=== PATIENT | female | born 1955 | race Caucasian/White ===

== ENCOUNTER 2019-10-24 11:42 | Inpatient (IN) | payer BC ==
[~2019-10-24] VITALS: Ht 165.1 cm; Wt 189.0 kg
[2019-10-24] MEDS ORDERED: SODIUM CHLORIDE FLUSH 10ML SYR IVF ONE (13:30)
[2019-10-24 13:55] LABS: BASOPHILS # (AUTO) 0.05 x10^3/uL (0-0.1); BASOPHILS % (AUTO) 1 % (0-1); EOSINOPHILS # (AUTO) 0.16 x10^3/uL (0-0.4); EOSINOPHILS % (AUTO) 2 % (1-7); LYMPHOCYTES # (AUTO) 0.82 x10^3/uL (1-3.4); LYMPHOCYTES % (AUTO) 12 % (22-44); MD NO; MEAN CORPUSCULAR HGB CONC 31.5 g/dL (32.4-35.8); MEAN CORPUSCULAR VOLUME 88.9 fL (80-100); MEAN PLATELET VOLUME 11.5 fL (7.4-10.4); MONOCYTES # (AUTO) 0.64 x10^3/uL (0.2-0.8); MONOCYTES % (AUTO) 9 % (2-9); NEUTROPHILS # (AUTO) 5.14 x10^3/uL (1.8-6.8); NEUTROPHILS % (AUTO) 76 % (42-75); PLATELET COUNT 182 x10^3/uL (130-400); RED BLOOD COUNT 4.18 x10^6/uL (3.82-5.3); RED CELL DISTRIBUTION WIDTH 16.3 % (9.6-15.2)
[2019-10-24 14:06] LABS: ALANINE AMINOTRANSFERASE 19 U/L (12-78); ALBUMIN 3.5 g/dL (3.4-5.0); ANION GAP 5 mmol/L (5-15); CALCIUM 8.6 mg/dL (8.5-10.1); CHLORIDE 113 mmol/L (98-107); CREATININE 0.94 mg/dL (0.55-1.02)
[2019-10-24 14:10] LABS: ALKALINE PHOSPHATASE 73 U/L (45-117); BILIRUBIN,TOTAL 0.3 mg/dL (0.2-1.0); TOTAL PROTEIN 7.2 g/dL (6.4-8.2); TROPONIN I 0.036 ng/mL (0.000-0.045)
[2019-10-24] MEDS ORDERED: CEFTRIAXONE PMX 1GM/50ML 50 ML ONE (14:18)
--- NOTE | 2019-10-24 14:29 | NUR ---
IV ESTABLISHED AND PT MEDICATED PER MD CARLENE AT BEDSIDE TO UPDATE PT ON POC. PT TO BE ADMITTED
[2019-10-24] MEDS ORDERED: CEFTRIAXONE PMX 1GM/50ML 50 ML IVPB ONE (14:30)
[2019-10-24] MEDS ORDERED: AZITHROMYCIN 500 MG in SODIUM CHLORIDE 0.9% 250 ML IVPB ONE (14:30)
[2019-10-24] MEDS ORDERED: SODIUM CHLORIDE FLUSH 10ML SYR IVF PRN (15:00)
--- NOTE | 2019-10-24 15:24 | NUR ---
REPORT TO ROMAN CUELLO
[2019-10-24 16:38] VITALS: BP 142/60
[2019-10-24] MEDS ORDERED: ONDANSETRON 2MG/ML, 2ML IVPush PRN (17:00)
[2019-10-24] MEDS: ENOXAPARIN 40 MG/0.4 ML SQ SCH (17:59)
[2019-10-24] MEDS: CEFTRIAXONE PMX 2GM/50ML 50 ML IV SCH (18:00)
[2019-10-24] MEDS ORDERED: LISI40TA PO (18:15)
[2019-10-24 18:32] LABS: TROPONIN I 0.043 ng/mL (0.000-0.045)
[2019-10-24] MEDS: DOXYCYCLINE 100 MG in DEXTROSE 5% 250 ML IV SCH (20:24)
[2019-10-24 20:32] VITALS: BP 123/86
[2019-10-24] MEDS ORDERED: OMNIPAQUE 350 MG/ML, 75ML BOTTLE ONE (23:41)
[2019-10-25] LABS: TROPONIN I 0.043 ng/mL (0.000-0.045)
[2019-10-25 02:27] VITALS: BP 125/55
[2019-10-25 08:18] VITALS: BP 136/58
[2019-10-25] MEDS: DOXYCYCLINE 100 MG in DEXTROSE 5% 250 ML IV SCH ×2 (10:03→21:51)
[2019-10-25 14:31] VITALS: BP 105/66
[2019-10-25] MEDS: ENOXAPARIN 40 MG/0.4 ML SQ SCH (17:48)
[2019-10-25] MEDS: CEFTRIAXONE PMX 2GM/50ML 50 ML IV SCH (17:48)
[2019-10-25] MEDS: IBUPROFEN 600 MG TABLET PO PRN ×2 (18:46→22:02)
[2019-10-25 20:06] VITALS: BP 137/101
[2019-10-26 03:01] VITALS: BP 145/70
[2019-10-26 06:58] LABS: BASOPHILS # (AUTO) 0.04 x10^3/uL (0-0.1); BASOPHILS % (AUTO) 1 % (0-1); EOSINOPHILS # (AUTO) 0.18 x10^3/uL (0-0.4); EOSINOPHILS % (AUTO) 4 % (1-7); LYMPHOCYTES # (AUTO) 0.85 x10^3/uL (1-3.4); LYMPHOCYTES % (AUTO) 20 % (22-44); MD NO; MEAN CORPUSCULAR HEMOGLOBIN 27.8 pg (27.0-34.8); MEAN CORPUSCULAR VOLUME 89.7 fL (80-100); MEAN PLATELET VOLUME 11.5 fL (7.4-10.4); MONOCYTES # (AUTO) 0.62 x10^3/uL (0.2-0.8); MONOCYTES % (AUTO) 14 % (2-9); NEUTROPHILS # (AUTO) 2.64 x10^3/uL (1.8-6.8); NEUTROPHILS % (AUTO) 61 % (42-75); PLATELET COUNT 170 x10^3/uL (130-400); RED BLOOD COUNT 3.93 x10^6/uL (3.82-5.3); RED CELL DISTRIBUTION WIDTH 16.6 % (9.6-15.2)
[2019-10-26 07:07] LABS: ANION GAP 5 mmol/L (5-15); CALCIUM 8.8 mg/dL (8.5-10.1); CHLORIDE 110 mmol/L (98-107); CREATININE 0.64 mg/dL (0.55-1.02)
[2019-10-26 08:29] VITALS: BP 152/68
[2019-10-26] MEDS: DOXYCYCLINE 100 MG in DEXTROSE 5% 250 ML IV SCH ×2 (11:01→22:00)
[2019-10-26] MEDS: IBUPROFEN 600 MG TABLET PO PRN ×2 (11:01→22:48)
[2019-10-26 13:48] VITALS: BP 105/44
[2019-10-26] MEDS: ENOXAPARIN 40 MG/0.4 ML SQ SCH (17:53)
[2019-10-26] MEDS: CEFTRIAXONE PMX 2GM/50ML 50 ML IV SCH (17:53)
[2019-10-26] MEDS: LACTOBACILLUS CHEW TABLET PO SCH (17:53)
[2019-10-26] MEDS: CYANOCOBALAMIN 1,000 MCG TABLET PO SCH (17:53)
[2019-10-26 20:00] VITALS: BP 135/60
[2019-10-26 21:16] VITALS: BP 135/60
[2019-10-27 01:20] VITALS: BP 132/79
[2019-10-27 07:01] LABS: BASOPHILS # (AUTO) 0.03 x10^3/uL (0-0.1); BASOPHILS % (AUTO) 1 % (0-1); EOSINOPHILS # (AUTO) 0.14 x10^3/uL (0-0.4); EOSINOPHILS % (AUTO) 3 % (1-7); LYMPHOCYTES # (AUTO) 0.76 x10^3/uL (1-3.4); LYMPHOCYTES % (AUTO) 17 % (22-44); MD NO; MEAN CORPUSCULAR HEMOGLOBIN 28.1 pg (27.0-34.8); MEAN CORPUSCULAR VOLUME 90.7 fL (80-100); MEAN PLATELET VOLUME 11.1 fL (7.4-10.4); MONOCYTES # (AUTO) 0.57 x10^3/uL (0.2-0.8); MONOCYTES % (AUTO) 13 % (2-9); NEUTROPHILS # (AUTO) 2.94 x10^3/uL (1.8-6.8); NEUTROPHILS % (AUTO) 66 % (42-75); PLATELET COUNT 164 x10^3/uL (130-400); RED BLOOD COUNT 3.98 x10^6/uL (3.82-5.3); RED CELL DISTRIBUTION WIDTH 16.5 % (9.6-15.2)
[2019-10-27 07:10] LABS: CHLORIDE 109 mmol/L (98-107)
[2019-10-27 07:16] LABS: ANION GAP 5 mmol/L (5-15); CALCIUM 8.5 mg/dL (8.5-10.1); CREATININE 0.51 mg/dL (0.55-1.02)
[2019-10-27 08:06] VITALS: BP 131/73
[2019-10-27] MEDS ORDERED: REGADENOSON 0.4 MG/5 ML SYRINGE ONE (08:06)
[2019-10-27] MEDS: CYANOCOBALAMIN 1,000 MCG TABLET PO SCH (08:38)
[2019-10-27] MEDS: LACTOBACILLUS CHEW TABLET PO SCH (08:38)
[2019-10-27 13:17] VITALS: BP 143/72
[2019-10-27] MEDS: DOXYCYCLINE 100 MG in DEXTROSE 5% 250 ML IV SCH (16:12)
[2019-10-27] MEDS: CEFTRIAXONE PMX 2GM/50ML 50 ML IV SCH (17:44)
[2019-10-27] MEDS: ENOXAPARIN 40 MG/0.4 ML SQ SCH (17:45)
[2019-10-27 20:34] VITALS: BP 143/74
[2019-10-27] MEDS: IBUPROFEN 600 MG TABLET PO PRN (21:49)
[2019-10-28 01:26] VITALS: BP 122/65
[2019-10-28] MEDS: DOXYCYCLINE 100 MG in DEXTROSE 5% 250 ML IV SCH ×2 (04:00→16:33)
[2019-10-28 07:17] VITALS: BP 130/72
[2019-10-28 07:39] LABS: BASOPHILS # (AUTO) 0.03 x10^3/uL (0-0.1); BASOPHILS % (AUTO) 1 % (0-1); EOSINOPHILS # (AUTO) 0.17 x10^3/uL (0-0.4); EOSINOPHILS % (AUTO) 4 % (1-7); LYMPHOCYTES # (AUTO) 0.55 x10^3/uL (1-3.4); LYMPHOCYTES % (AUTO) 14 % (22-44); MD NO; MEAN CORPUSCULAR HEMOGLOBIN 28.1 pg (27.0-34.8); MEAN CORPUSCULAR HGB CONC 31.1 g/dL (32.4-35.8); MEAN CORPUSCULAR VOLUME 90.2 fL (80-100); MEAN PLATELET VOLUME 10.4 fL (7.4-10.4); MONOCYTES # (AUTO) 0.48 x10^3/uL (0.2-0.8); MONOCYTES % (AUTO) 12 % (2-9); NEUTROPHILS # (AUTO) 2.69 x10^3/uL (1.8-6.8); NEUTROPHILS % (AUTO) 69 % (42-75); PLATELET COUNT 155 x10^3/uL (130-400); RED BLOOD COUNT 3.92 x10^6/uL (3.82-5.3); RED CELL DISTRIBUTION WIDTH 16.3 % (9.6-15.2)
[2019-10-28 07:44] LABS: CALCIUM 8.5 mg/dL (8.5-10.1); CREATININE 0.48 mg/dL (0.55-1.02)
[2019-10-28 07:57] LABS: ANION GAP 3 mmol/L (5-15); CHLORIDE 106 mmol/L (98-107)
[2019-10-28] MEDS: LACTOBACILLUS CHEW TABLET PO SCH (09:28)
[2019-10-28] MEDS: CYANOCOBALAMIN 1,000 MCG TABLET PO SCH (09:28)
[2019-10-28 12:33] VITALS: BP 131/77
[2019-10-28] MEDS: ENOXAPARIN 40 MG/0.4 ML SQ SCH (17:43)
[2019-10-28] MEDS: CEFTRIAXONE PMX 2GM/50ML 50 ML IV SCH (18:00)
[2019-10-28 20:49] VITALS: BP 138/77
[2019-10-28] MEDS: IBUPROFEN 600 MG TABLET PO PRN (23:26)
[2019-10-29 02:35] VITALS: BP 120/72
[2019-10-29] MEDS: DOXYCYCLINE 100 MG in DEXTROSE 5% 250 ML IV SCH ×2 (04:20→18:11)
[2019-10-29 05:10] LABS: ANION GAP 4 mmol/L (5-15); CALCIUM 8.4 mg/dL (8.5-10.1); CHLORIDE 107 mmol/L (98-107); CREATININE 0.46 mg/dL (0.55-1.02)
[2019-10-29 05:12] LABS: BASOPHILS # (AUTO) 0.02 x10^3/uL (0-0.1); BASOPHILS % (AUTO) 0 % (0-1); EOSINOPHILS # (AUTO) 0.21 x10^3/uL (0-0.4); EOSINOPHILS % (AUTO) 5 % (1-7); LYMPHOCYTES # (AUTO) 0.66 x10^3/uL (1-3.4); LYMPHOCYTES % (AUTO) 16 % (22-44); MD NO; MEAN CORPUSCULAR HGB CONC 31.4 g/dL (32.4-35.8); MEAN CORPUSCULAR VOLUME 89.1 fL (80-100); MONOCYTES # (AUTO) 0.47 x10^3/uL (0.2-0.8); MONOCYTES % (AUTO) 12 % (2-9); NEUTROPHILS # (AUTO) 2.67 x10^3/uL (1.8-6.8); NEUTROPHILS % (AUTO) 66 % (42-75); PLATELET COUNT 148 x10^3/uL (130-400); RED BLOOD COUNT 3.79 x10^6/uL (3.82-5.3); RED CELL DISTRIBUTION WIDTH 15.8 % (9.6-15.2)
[2019-10-29 07:06] VITALS: BP 137/76
[2019-10-29] MEDS: CYANOCOBALAMIN 1,000 MCG TABLET PO SCH (08:03)
[2019-10-29] MEDS: LACTOBACILLUS CHEW TABLET PO SCH (08:03)
[2019-10-29 13:00] VITALS: BP 144/74
[2019-10-29] MEDS: IBUPROFEN 600 MG TABLET PO PRN (15:13)
[2019-10-29] MEDS: CEFTRIAXONE PMX 2GM/50ML 50 ML IV SCH (17:32)
[2019-10-29] MEDS: ENOXAPARIN 40 MG/0.4 ML SQ SCH (18:11)
[2019-10-29 20:00] VITALS: BP 139/71
[2019-10-30 02:47] VITALS: BP 130/74
[2019-10-30] MEDS: DOXYCYCLINE 100 MG in DEXTROSE 5% 250 ML IV SCH (04:15)
[2019-10-30] MEDS: IBUPROFEN 600 MG TABLET PO PRN ×2 (06:00→18:32)
[2019-10-30 06:15] LABS: BASOPHILS # (AUTO) 0.02 x10^3/uL (0-0.1); BASOPHILS % (AUTO) 1 % (0-1); EOSINOPHILS % (AUTO) 5 % (1-7); LYMPHOCYTES # (AUTO) 0.64 x10^3/uL (1-3.4); LYMPHOCYTES % (AUTO) 15 % (22-44); MD NO; MEAN CORPUSCULAR HEMOGLOBIN 28.1 pg (27.0-34.8); MEAN CORPUSCULAR HGB CONC 31.5 g/dL (32.4-35.8); MEAN CORPUSCULAR VOLUME 89.3 fL (80-100); MONOCYTES # (AUTO) 0.47 x10^3/uL (0.2-0.8); MONOCYTES % (AUTO) 11 % (2-9); NEUTROPHILS # (AUTO) 2.88 x10^3/uL (1.8-6.8); NEUTROPHILS % (AUTO) 68 % (42-75); PLATELET COUNT 130 x10^3/uL (130-400); RED BLOOD COUNT 3.87 x10^6/uL (3.82-5.3); RED CELL DISTRIBUTION WIDTH 15.4 % (9.6-15.2)
[2019-10-30 06:25] LABS: ANION GAP 1 mmol/L (5-15); CALCIUM 8.5 mg/dL (8.5-10.1); CHLORIDE 105 mmol/L (98-107); CREATININE 0.41 mg/dL (0.55-1.02)
[2019-10-30 06:45] VITALS: BP 119/67
[2019-10-30] MEDS: CYANOCOBALAMIN 1,000 MCG TABLET PO SCH (08:46)
[2019-10-30] MEDS: LACTOBACILLUS CHEW TABLET PO SCH (08:46)
[2019-10-30 12:09] VITALS: BP 127/67
[2019-10-30] MEDS ORDERED: ATOR20TA37 PO (13:16)
[2019-10-30] MEDS ORDERED: ASPI81TA45 PO (13:16)
[2019-10-30] MEDS ORDERED: LISI40TA PO (13:16)
[2019-10-30] MEDS ORDERED: CYAN-27 PO (13:16)
[2019-10-30] MEDS ORDERED: ENOX40SY4 SQ (13:16)
[2019-10-30] MEDS: ENOXAPARIN 40 MG/0.4 ML SQ SCH (16:31)
[2019-10-30] MEDS: CEFTRIAXONE PMX 2GM/50ML 50 ML IV SCH (16:31)
[2019-10-30] MEDS: DOXYCYCLINE 100MG CAP PO SCH (20:47)
[2019-10-30 21:02] VITALS: BP 118/70
[2019-10-31 03:02] VITALS: BP 124/72
[2019-10-31] MEDS: IBUPROFEN 600 MG TABLET PO PRN ×2 (06:00→18:36)
[2019-10-31 06:56] VITALS: BP 118/58
[2019-10-31] MEDS: DOXYCYCLINE 100MG CAP PO SCH ×2 (08:36→20:55)
[2019-10-31] MEDS: LACTOBACILLUS CHEW TABLET PO SCH (08:36)
[2019-10-31] MEDS: CYANOCOBALAMIN 1,000 MCG TABLET PO SCH (08:37)
[2019-10-31 14:26] VITALS: BP 119/72
[2019-10-31] MEDS: ENOXAPARIN 40 MG/0.4 ML SQ SCH (18:36)
[2019-10-31 18:43] LABS: MICROSCOPIC AUTO
[2019-10-31 20:32] VITALS: BP 118/61
[2019-11-01 01:07] VITALS: BP 114/68
[2019-11-01 04:00] LABS: ANION GAP 5 mmol/L (5-15); CALCIUM 8.8 mg/dL (8.5-10.1); CHLORIDE 104 mmol/L (98-107); CREATININE 0.41 mg/dL (0.55-1.02)
[2019-11-01 04:33] LABS: BASOPHILS # (AUTO) 0.03 x10^3/uL (0-0.1); BASOPHILS % (AUTO) 1 % (0-1); EOSINOPHILS # (AUTO) 0.21 x10^3/uL (0-0.4); EOSINOPHILS % (AUTO) 5 % (1-7); LYMPHOCYTES # (AUTO) 0.67 x10^3/uL (1-3.4); LYMPHOCYTES % (AUTO) 15 % (22-44); MD NO; MEAN CORPUSCULAR HGB CONC 31.4 g/dL (32.4-35.8); MEAN CORPUSCULAR VOLUME 89.2 fL (80-100); MEAN PLATELET VOLUME 11.7 fL (7.4-10.4); MONOCYTES # (AUTO) 0.52 x10^3/uL (0.2-0.8); MONOCYTES % (AUTO) 11 % (2-9); NEUTROPHILS # (AUTO) 3.17 x10^3/uL (1.8-6.8); NEUTROPHILS % (AUTO) 69 % (42-75); PLATELET COUNT 122 x10^3/uL (130-400); RED BLOOD COUNT 3.85 x10^6/uL (3.82-5.3); RED CELL DISTRIBUTION WIDTH 15.8 % (9.6-15.2)
[2019-11-01 07:15] VITALS: BP 133/74
[2019-11-01] MEDS: IBUPROFEN 600 MG TABLET PO PRN ×2 (08:34→17:50)
[2019-11-01] MEDS: LACTOBACILLUS CHEW TABLET PO SCH (08:34)
[2019-11-01] MEDS: CYANOCOBALAMIN 1,000 MCG TABLET PO SCH (08:34)
[2019-11-01] MEDS: DOXYCYCLINE 100MG CAP PO SCH (08:34)
[2019-11-01] MEDS ORDERED: ENOXAPARIN 30 MG/0.3 ML SQ SCH (12:30)
[2019-11-01 12:36] VITALS: BP 130/71
[2019-11-01] MEDS ORDERED: LEVO750T26 PO (16:07)
== END 2019-11-01 18:08 | DRG 194 ==
LOC: ED 13:30 → EDIP 14:34 → 4NE 16:12 → 4EST 10-27 07:45
PROVIDERS: ADMIT Internal Medicine; ATTEND Family Medicine
PROC: 0T9B70Z Drainage of Bladder with Drainage Device, Via Natural or Artificial Opening (ICD-10-PCS; principal; 2019-10-31)
DX: J15.9 Unspecified bacterial pneumonia (principal); Z68.44 Body mass index [BMI] 60.0-69.9, adult; Z03.818 Encounter for observation for suspected exposure to other biological agents ruled out; I25.10 Atherosclerotic heart disease of native coronary artery without angina pectoris; E66.01 Morbid (severe) obesity due to excess calories; G47.33 Obstructive sleep apnea (adult) (pediatric); R79.89 Other specified abnormal findings of blood chemistry; R53.81 Other malaise; Z88.8 Allergy status to other drugs, medicaments and biological substances
CPT/HCPCS: 36415; 36600; 71045; 71275; 78452; 80048; 80053; 80069; 81001; 82803; 83605; 83735; 83880; 84145; 84484; 85025; 85379; 87040; 87077; 87086; 87186; 93005; 93017; 93308; 93321; 93325; G0378; J0456; J0696; J1650; J2785; J7060; Q9967; A9502; C9898; J7050; U0001-CS

== ENCOUNTER 2020-10-12 19:24 | Inpatient (IN) | payer BC ==
[~2020-10-12] VITALS: Ht 157.5 cm; Wt 205.7 kg
[~2020-10-12 19:24] MED LIST: ASPI81TA45 PO; ATOR20TA37 PO; CYAN-27 PO; ENOX40SY4 SQ; LEVO750T26 PO; LISI40TA9 PO
[2020-10-12] MEDS ORDERED: SODIUM CHLORIDE FLUSH 10ML SYR IVF ONE (20:00)
[2020-10-12 20:05] LABS: BASOPHILS % (AUTO) 1 % (0-1); EOSINOPHILS % (AUTO) 3 % (1-7); LYMPHOCYTES % (AUTO) 10 % (22-44); MEAN PLATELET VOLUME 10.7 fL (7.4-10.4); MONOCYTES % (AUTO) 12 % (2-9); NEUTROPHILS % (AUTO) 74 % (42-75); PLATELET COUNT 169 x10^3/uL (130-400); RED BLOOD COUNT 3.76 x10^6/uL (3.82-5.3); RED CELL DISTRIBUTION WIDTH 17.3 % (9.6-15.2)
[2020-10-12 20:07] LABS: MEAN CORPUSCULAR HGB CONC 29.7 g/dL (32.4-35.8)
[2020-10-12 20:10] LABS: MD NO
[2020-10-12 20:17] LABS: INTERNATIONAL NORMALIZED RATIO 1.08 (0.93-1.1); PROTHROMBIN TIME 11.5 Seconds (9.6-11.5)
[2020-10-12 20:18] LABS: ALANINE AMINOTRANSFERASE 9 U/L (12-78); ALBUMIN 2.7 g/dL (3.4-5.0); CALCIUM 8.5 mg/dL (8.5-10.1); CHLORIDE 97 mmol/L (98-107)
[2020-10-12 20:28] LABS: ALKALINE PHOSPHATASE 61 U/L (45-117); BILIRUBIN,TOTAL 0.2 mg/dL (0.2-1.0); FREE T4 (FREE THYROXINE) 0.85 ng/dL (0.76-1.46); TOTAL PROTEIN 6.1 g/dL (6.4-8.2); TROPONIN I 0.027 ng/mL (0.000-0.045)
[2020-10-12] MEDS ORDERED: APIXABAN 5 MG TABLET PO ONE (21:00)
[2020-10-12] MEDS ORDERED: FUROSEMIDE 20 MG/2 ML IV ONE (21:00)
[2020-10-12 21:01] LABS: ANION GAP < 0 mmol/L (5-15)
--- NOTE | 2020-10-12 21:02 | NUR ---
CO2 OF 48-ERP MADE AWARE. NO NEW ORDERS
[2020-10-12] MEDS ORDERED: METOPROLOL TARTRATE 25 MG TAB PO ONE (21:30)
[2020-10-12] MEDS ORDERED: APIXABAN 5 MG TABLET ONE (21:43)
[2020-10-12] MEDS ORDERED: FUROSEMIDE 20 MG/2 ML ONE (21:43)
[2020-10-12] MEDS ORDERED: METOPROLOL TARTRATE 25 MG TAB ONE (21:43)
[2020-10-12 22:56] VITALS: BP 130/77
[2020-10-12] MEDS ORDERED: LIDODERM 5% PATCH TD PRN (23:00)
[2020-10-12] MEDS ORDERED: MELATONIN 5 MG TABLET PO PRN (23:00)
[2020-10-12] MEDS ORDERED: DOCUSATE 100 MG CAPSULE PO PRN (23:00)
[2020-10-13 02:15] VITALS: BP 133/76
[2020-10-13 06:46] LABS: BASOPHILS % (AUTO) 0 % (0-1); EOSINOPHILS % (AUTO) 3 % (1-7); LYMPHOCYTES % (AUTO) 11 % (22-44); MEAN CORPUSCULAR HEMOGLOBIN 27.6 pg (27.0-34.8); MEAN CORPUSCULAR HGB CONC 30.5 g/dL (32.4-35.8); MEAN PLATELET VOLUME 10.8 fL (7.4-10.4); MONOCYTES % (AUTO) 13 % (2-9); NEUTROPHILS % (AUTO) 73 % (42-75); PLATELET COUNT 155 x10^3/uL (130-400); RED BLOOD COUNT 3.67 x10^6/uL (3.82-5.3); RED CELL DISTRIBUTION WIDTH 17.1 % (9.6-15.2)
[2020-10-13 06:51] LABS: MD NO
[2020-10-13 06:56] LABS: CALCIUM 8.6 mg/dL (8.5-10.1); CHLORIDE 95 mmol/L (98-107)
[2020-10-13 06:57] VITALS: BP 104/70
[2020-10-13 07:06] LABS: CREATININE 0.23 mg/dL (0.55-1.02)
[2020-10-13 07:10] LABS: ANION GAP < 1 mmol/L (5-15)
[2020-10-13] MEDS ORDERED: NYSTATIN TOPICAL POWDER 15GM TP SCH (09:00)
[2020-10-13] MEDS: FUROSEMIDE 20 MG/2 ML IV SCH ×2 (09:53→16:06)
[2020-10-13] MEDS: APIXABAN 5 MG TABLET PO SCH ×2 (09:54→20:54)
[2020-10-13] MEDS: GABAPENTIN 300 MG CAPSULE PO SCH ×3 (09:54→20:54)
[2020-10-13] MEDS ORDERED: METOPROLOL TARTRATE 25 MG TAB ONE (11:50)
[2020-10-13] MEDS: METOPROLOL TARTRATE 25 MG TAB PO SCH (12:29)
[2020-10-13 13:32] VITALS: BP 125/74
[2020-10-13] MEDS: ACETAMINOPHEN 500 MG TABLET PO PRN ×2 (14:25→21:04)
[2020-10-13] MEDS: NYSTATIN TOPICAL POWDER 15GM TP SCH ×2 (14:42→21:00)
[2020-10-13 19:52] VITALS: BP 115/76
[2020-10-13] MEDS: ATORVASTATIN 20 MG TABLET PO SCH (20:55)
[2020-10-14 01:49] VITALS: BP 130/84
[2020-10-14] MEDS: ACETAMINOPHEN 500 MG TABLET PO PRN ×2 (04:37→20:52)
[2020-10-14 06:34] VITALS: BP 124/81
[2020-10-14 07:06] LABS: % IRON SATURATION 7 % (20-55); CALCIUM 8.6 mg/dL (8.5-10.1); CREATININE 0.27 mg/dL (0.55-1.02); IRON LEVEL 32 mcg/dL (50-170); TOTAL IRON BINDING CAPACITY 436 mcg/dL (250-450)
[2020-10-14 07:26] LABS: ANION GAP 4 mmol/L (5-15); CHLORIDE 94 mmol/L (98-107)
[2020-10-14] MEDS: FUROSEMIDE 20 MG/2 ML IV SCH ×2 (08:24→16:41)
[2020-10-14] MEDS: APIXABAN 5 MG TABLET PO SCH ×2 (08:25→20:52)
[2020-10-14] MEDS: LISINOPRIL 5 MG TABLET PO SCH (08:25)
[2020-10-14] MEDS: GABAPENTIN 300 MG CAPSULE PO SCH ×3 (08:25→20:52)
[2020-10-14] MEDS: METOPROLOL TARTRATE 25 MG TAB PO SCH (08:25)
[2020-10-14] MEDS: NYSTATIN TOPICAL POWDER 15GM TP SCH ×2 (09:36→21:15)
[2020-10-14] MEDS: IRON SUCROSE COMPLEX 100MG/5ML IV SCH (10:48)
[2020-10-14 12:24] VITALS: BP 100/62
[2020-10-14 19:11] VITALS: BP 115/62
[2020-10-14] MEDS: ATORVASTATIN 20 MG TABLET PO SCH (20:52)
[2020-10-15 01:11] VITALS: BP 98/59
[2020-10-15 07:49] VITALS: BP 103/70
[2020-10-15 08:08] LABS: CALCIUM 8.5 mg/dL (8.5-10.1); CHLORIDE 92 mmol/L (98-107)
[2020-10-15 08:09] LABS: CREATININE 0.99 mg/dL (0.55-1.02)
[2020-10-15] MEDS: ACETAMINOPHEN 500 MG TABLET PO SCH ×3 (08:10→23:40)
[2020-10-15] MEDS: METOPROLOL TARTRATE 25 MG TAB PO SCH (08:11)
[2020-10-15] MEDS: LISINOPRIL 5 MG TABLET PO SCH (08:12)
[2020-10-15] MEDS: APIXABAN 5 MG TABLET PO SCH ×2 (08:12→23:40)
[2020-10-15] MEDS: GABAPENTIN 300 MG CAPSULE PO SCH ×3 (08:12→23:40)
[2020-10-15] MEDS: IRON SUCROSE COMPLEX 100MG/5ML IV SCH (08:13)
[2020-10-15] MEDS: NYSTATIN TOPICAL POWDER 15GM TP SCH ×2 (08:13→23:41)
[2020-10-15] MEDS: FUROSEMIDE 20 MG/2 ML IV SCH (08:13)
[2020-10-15] MEDS: ALBUTEROL/IPRATROPIUM 2.5MG/0.5MG, 3 ML NPPB SCH ×3 (08:20→21:30)
[2020-10-15 09:02] LABS: ANION GAP < 1 mmol/L (5-15)
[2020-10-15 12:04] VITALS: BP 88/59
[2020-10-15 12:06] VITALS: BP 107/68
[2020-10-15] MEDS ORDERED: SODIUM CHLORIDE 0.9% 500 ML IV ONE (13:00)
[2020-10-15] MEDS ORDERED: SODIUM CHLORIDE 0.9% 500 ML IV SCH (13:00)
[2020-10-15 15:56] VITALS: BP 113/65
[2020-10-15] MEDS ORDERED: NOREPINEPHRINE 1 MG/ML, 4ML ONE (19:28)
[2020-10-15] MEDS ORDERED: NOREPINEPHRINE 32 MG in SODIUM CHLORIDE 0.9% 218 ML IV PRN (19:30)
[2020-10-15] MEDS ORDERED: NOREPINEPHRINE 8 MG in SODIUM CHLORIDE 0.9% 242 ML IV PRN (19:30)
[2020-10-15] MEDS ORDERED: LIDOCAINE-MPF 1%, 2ML ENDO PRN (20:00)
[2020-10-15] MEDS ORDERED: PHARMACY MAY ADJ FOR RENAL FX MC SCH (20:00)
[2020-10-15] MEDS ORDERED: LACTULOSE 20 GM/30 ML UDC NG PRN (20:00)
[2020-10-15] MEDS ORDERED: SENNA/DOCUSATE TABLET NG PRN (20:00)
[2020-10-15] MEDS ORDERED: SENNA 176 MG/5 ML ORAL SOL NG PRN (20:00)
[2020-10-15] MEDS ORDERED: BISACODYL 10 MG SUPP PR PRN (20:00)
[2020-10-15] MEDS ORDERED: ALBUTEROL/IPRATROPIUM 2.5MG/0.5MG, 3 ML ONE (20:51)
[2020-10-15] MEDS ORDERED: PROPOFOL 10 MG/ML, 20ML ONE (21:00)
[2020-10-15] MEDS ORDERED: ROCURONIUM 10MG/ML,5ML ONE (21:00)
[2020-10-15] MEDS ORDERED: PROPOFOL 10 MG/ML, 100ML IV ONE (21:00)
[2020-10-15] MEDS ORDERED: MIDAZOLAM 1 MG/ML, 5ML ONE (21:00)
[2020-10-15] MEDS ORDERED: LACTATED RINGERS 500 ML IVBOLUS ONE (21:30)
[2020-10-15] MEDS ORDERED: ALBUTEROL/IPRATROPIUM 2.5MG/0.5MG, 3 ML NPPB PRN (21:30)
[2020-10-15 21:42] LABS: BASOPHILS % (AUTO) 0 % (0-1); EOSINOPHILS % (AUTO) 1 % (1-7); LYMPHOCYTES % (AUTO) 4 % (22-44); MEAN CORPUSCULAR HEMOGLOBIN 27.2 pg (27.0-34.8); MEAN PLATELET VOLUME 11.3 fL (7.4-10.4); MONOCYTES % (AUTO) 11 % (2-9); NEUTROPHILS % (AUTO) 83 % (42-75); PLATELET COUNT 188 x10^3/uL (130-400); RED BLOOD COUNT 3.87 x10^6/uL (3.82-5.3); RED CELL DISTRIBUTION WIDTH 17.5 % (9.6-15.2)
[2020-10-15 21:51] LABS: INTERNATIONAL NORMALIZED RATIO 1.07 (0.93-1.1); PROTHROMBIN TIME 11.4 Seconds (9.6-11.5)
[2020-10-15 21:55] LABS: ALANINE AMINOTRANSFERASE 11 U/L (12-78); ANION GAP 2 mmol/L (5-15); CHLORIDE 94 mmol/L (98-107); CREATININE 1.12 mg/dL (0.55-1.02)
[2020-10-15 21:58] LABS: ALKALINE PHOSPHATASE 63 U/L (45-117); BILIRUBIN,TOTAL 0.5 mg/dL (0.2-1.0); TOTAL PROTEIN 6.3 g/dL (6.4-8.2)
[2020-10-15 22:02] LABS: MICROSCOPIC INDICATED
[2020-10-15 22:07] LABS: MEAN CORPUSCULAR HGB CONC 29.4 g/dL (32.4-35.8)
[2020-10-15 22:11] LABS: MD MORPH REVIEW ONLY
[2020-10-15 22:13] LABS: <PLATELET ESTIMATE> ADEQUATE; ANISOCYTOSIS 1+
[2020-10-15 22:14] LABS: POLYCHROMASIA 1+
[2020-10-15 22:17] LABS: LARGE PLATELETS 1+; STOMATOCYTES 1+
[2020-10-15] MEDS: ATORVASTATIN 20 MG TABLET PO SCH (23:40)
[2020-10-15] MEDS: FAMOTIDINE 20 MG/2 ML IV SCH (23:43)
[2020-10-16] MEDS: PROPOFOL 100 ML IV PRN ×10 (01:21→22:50)
[2020-10-16] MEDS: ALBUTEROL/IPRATROPIUM 2.5MG/0.5MG, 3 ML NPPB SCH ×6 (02:20→22:34)
[2020-10-16] MEDS: ACETAMINOPHEN 500 MG TABLET PO SCH ×4 (02:39→20:35)
[2020-10-16 05:47] LABS: BASOPHILS % (AUTO) 0 % (0-1); EOSINOPHILS % (AUTO) 2 % (1-7); LYMPHOCYTES % (AUTO) 7 % (22-44); MEAN PLATELET VOLUME 11.5 fL (7.4-10.4); MONOCYTES % (AUTO) 10 % (2-9); NEUTROPHILS % (AUTO) 82 % (42-75); PLATELET COUNT 152 x10^3/uL (130-400); RED BLOOD COUNT 3.61 x10^6/uL (3.82-5.3); RED CELL DISTRIBUTION WIDTH 17.1 % (9.6-15.2)
[2020-10-16 05:49] LABS: MD NO
[2020-10-16 05:52] LABS: ALBUMIN 2.5 g/dL (3.4-5.0); ANION GAP 2 mmol/L (5-15); CALCIUM 8.7 mg/dL (8.5-10.1); CHLORIDE 95 mmol/L (98-107)
[2020-10-16 05:58] LABS: CREATININE 0.71 mg/dL (0.55-1.02)
[2020-10-16 05:59] LABS: ALANINE AMINOTRANSFERASE 10 U/L (12-78); ALKALINE PHOSPHATASE 56 U/L (45-117); BILIRUBIN,TOTAL 0.5 mg/dL (0.2-1.0); TOTAL PROTEIN 5.4 g/dL (6.4-8.2)
[2020-10-16] MEDS: FAMOTIDINE 20 MG/2 ML IV SCH ×2 (07:46→20:35)
[2020-10-16] MEDS: METOPROLOL TARTRATE 25 MG TAB PO SCH (09:00)
[2020-10-16] MEDS: LISINOPRIL 5 MG TABLET PO SCH (09:00)
[2020-10-16] MEDS: APIXABAN 5 MG TABLET PO SCH ×2 (09:02→20:35)
[2020-10-16] MEDS: GABAPENTIN 300 MG CAPSULE PO SCH ×3 (09:02→20:35)
[2020-10-16] MEDS: IRON SUCROSE COMPLEX 100MG/5ML IV SCH (09:02)
[2020-10-16] MEDS ORDERED: FLUCONAZOLE 200 MG/100 ML 100 ML IV ONE (09:30)
[2020-10-16] MEDS: NYSTATIN OINT 15GM TP SCH ×2 (10:14→20:36)
[2020-10-16] MEDS: NYSTATIN TOPICAL POWDER 15GM TP SCH ×2 (10:14→20:36)
--- NOTE | 2020-10-16 14:02 | NUR ---
Tube Feed: Vital HP: goal: 55 on propofol, 65 ml/hr off propofol Addendum: 10/16/20 at [address] Amended: Links added.
[2020-10-16] MEDS: FENTANYL PF 100 MCG/2ML IVPush PRN ×2 (15:35→20:36)
[2020-10-16] MEDS ORDERED: AMIODARONE 150 MG in DEXTROSE 5% 100 ML IV ONE (17:00)
[2020-10-16] MEDS ORDERED: FILTER 0.22 MICRON FOR AMIODARONE IV PRN (17:00)
[2020-10-16] MEDS: AMIODARONE 450 MG in DEXTROSE 5% 241 ML IV PRN ×2 (17:07→21:19)
[2020-10-16] MEDS: PIPERACILLIN/TAZO 3.375 GM in DEXTROSE 5% 50 ML IV SCH ×2 (17:07→22:49)
[2020-10-16] MEDS: LINEZOLID PMX 600MG/300ML 300 ML IV SCH (17:54)
[2020-10-16] MEDS: ATORVASTATIN 20 MG TABLET PO SCH (20:35)
[2020-10-16] MEDS ORDERED: ALBUMIN HUMAN 25% 200 ML ONE (21:11)
[2020-10-16] MEDS ORDERED: MAGNESIUM SULFATE 1 GM in SODIUM CHLORIDE 0.9% 50 ML IV ONE (21:30)
[2020-10-16] MEDS ORDERED: ALBUMIN HUMAN 25% 100 ML IV ONE ×2 (21:30)
[2020-10-16] MEDS ORDERED: MAGNESIUM SULFATE/D5W 100 ML IV ONE (22:00)
[2020-10-17] MEDS: FENTANYL PF 100 MCG/2ML IVPush PRN ×5 (01:13→23:31)
[2020-10-17] MEDS: PROPOFOL 100 ML IV PRN ×9 (01:13→23:21)
[2020-10-17] MEDS: ALBUTEROL/IPRATROPIUM 2.5MG/0.5MG, 3 ML NPPB SCH ×5 (02:19→21:30)
[2020-10-17] MEDS: ACETAMINOPHEN 500 MG TABLET PO SCH ×4 (03:06→21:10)
[2020-10-17 04:05] LABS: BASOPHILS % (AUTO) 0 % (0-1); EOSINOPHILS % (AUTO) 2 % (1-7); LYMPHOCYTES % (AUTO) 7 % (22-44); MEAN CORPUSCULAR HEMOGLOBIN 27.4 pg (27.0-34.8); MEAN CORPUSCULAR HGB CONC 31.1 g/dL (32.4-35.8); MEAN PLATELET VOLUME 10.7 fL (7.4-10.4); MONOCYTES % (AUTO) 13 % (2-9); NEUTROPHILS % (AUTO) 78 % (42-75); PLATELET COUNT 167 x10^3/uL (130-400); RED BLOOD COUNT 3.56 x10^6/uL (3.82-5.3); RED CELL DISTRIBUTION WIDTH 17.2 % (9.6-15.2)
[2020-10-17 04:06] LABS: MD NO
[2020-10-17 04:15] LABS: ANION GAP 3 mmol/L (5-15); CALCIUM 8.8 mg/dL (8.5-10.1); CHLORIDE 95 mmol/L (98-107); CREATININE 0.53 mg/dL (0.55-1.02)
[2020-10-17] MEDS: PIPERACILLIN/TAZO 3.375 GM in DEXTROSE 5% 50 ML IV SCH ×3 (04:21→17:08)
[2020-10-17] MEDS: LINEZOLID PMX 600MG/300ML 300 ML IV SCH ×2 (05:44→17:08)
[2020-10-17] MEDS: KSCALE TO 4.5 IV SCH ×3 (07:00→19:00)
[2020-10-17] MEDS ORDERED: MAGNESIUM SULFATE PMX 2GM/50ML 50 ML IV ONE (07:00)
[2020-10-17] MEDS: FAMOTIDINE 20 MG/2 ML IV SCH ×2 (08:10→21:09)
[2020-10-17] MEDS: APIXABAN 5 MG TABLET PO SCH ×2 (08:10→21:10)
[2020-10-17] MEDS: GABAPENTIN 300 MG CAPSULE PO SCH ×3 (08:11→21:10)
[2020-10-17] MEDS: AMIODARONE 450 MG in DEXTROSE 5% 241 ML IV PRN (08:12)
[2020-10-17] MEDS: METOPROLOL TARTRATE 25 MG TAB PO SCH (09:00)
[2020-10-17] MEDS: LISINOPRIL 5 MG TABLET PO SCH (09:00)
[2020-10-17] MEDS: NYSTATIN OINT 15GM TP SCH ×2 (10:11→21:11)
[2020-10-17] MEDS: NYSTATIN TOPICAL POWDER 15GM TP SCH ×2 (10:11→21:11)
[2020-10-17] MEDS ORDERED: POTASSIUM CHLORIDE 30 MEQ in SODIUM CHLORIDE 0.9% 100 ML IV ONE ×2 (11:30→20:30)
[2020-10-17] MEDS: ATORVASTATIN 20 MG TABLET PO SCH (21:10)
[2020-10-18] MEDS: PIPERACILLIN/TAZO 3.375 GM in DEXTROSE 5% 50 ML IV SCH ×4 (00:28→15:37)
[2020-10-18] MEDS: AMIODARONE 450 MG in DEXTROSE 5% 241 ML IV PRN (00:30)
[2020-10-18] MEDS: KSCALE TO 4.5 IV SCH ×2 (01:00→07:00)
[2020-10-18] MEDS: PROPOFOL 100 ML IV PRN ×7 (01:26→21:18)
[2020-10-18] MEDS: ALBUTEROL/IPRATROPIUM 2.5MG/0.5MG, 3 ML NPPB SCH ×6 (01:30→21:30)
[2020-10-18] MEDS: FENTANYL PF 1,000 MCG in SODIUM CHLORIDE 0.9% 80 ML IV PRN ×2 (01:31→15:17)
[2020-10-18] MEDS ORDERED: POTASSIUM CHLORIDE 30 MEQ in SODIUM CHLORIDE 0.9% 100 ML IV ONE ×2 (02:30→08:00)
[2020-10-18] MEDS: ACETAMINOPHEN 500 MG TABLET PO SCH ×4 (03:12→21:07)
[2020-10-18 05:10] LABS: CALCIUM 8.5 mg/dL (8.5-10.1); CREATININE 0.41 mg/dL (0.55-1.02); TRIGLYCERIDES 100 mg/dL (50-200)
[2020-10-18 05:16] LABS: BASOPHILS % (AUTO) 1 % (0-1); EOSINOPHILS % (AUTO) 4 % (1-7); LYMPHOCYTES % (AUTO) 10 % (22-44); MEAN CORPUSCULAR HEMOGLOBIN 27.5 pg (27.0-34.8); MEAN CORPUSCULAR HGB CONC 31.1 g/dL (32.4-35.8); MEAN PLATELET VOLUME 11.2 fL (7.4-10.4); MONOCYTES % (AUTO) 13 % (2-9); NEUTROPHILS % (AUTO) 73 % (42-75); PLATELET COUNT 156 x10^3/uL (130-400); RED CELL DISTRIBUTION WIDTH 17.6 % (9.6-15.2)
[2020-10-18 05:18] LABS: ANION GAP 3 mmol/L (5-15); CHLORIDE 100 mmol/L (98-107)
[2020-10-18 05:19] LABS: MD NO
[2020-10-18] MEDS: LINEZOLID PMX 600MG/300ML 300 ML IV SCH ×2 (06:27→17:25)
[2020-10-18] MEDS: FAMOTIDINE 20 MG/2 ML IV SCH ×2 (10:38→21:07)
[2020-10-18] MEDS: APIXABAN 5 MG TABLET PO SCH ×2 (10:39→21:08)
[2020-10-18] MEDS: GABAPENTIN 300 MG CAPSULE PO SCH ×3 (10:39→21:07)
[2020-10-18] MEDS: AMIODARONE 200 MG TABLET PO SCH ×2 (10:39→21:07)
[2020-10-18] MEDS: NYSTATIN TOPICAL POWDER 15GM TP SCH ×2 (10:40→21:08)
[2020-10-18] MEDS: POTASSIUM CHLORIDE 20 MEQ PACKET PO SCH ×2 (10:40→15:37)
[2020-10-18] MEDS: NYSTATIN OINT 15GM TP SCH ×2 (10:40→21:08)
[2020-10-18] MEDS ORDERED: FUROSEMIDE 40 MG/4 ML IV ONE (12:30)
[2020-10-18] MEDS ORDERED: POTASSIUM CHLORIDE 20 MEQ TAB.ER.PRT PO ONE (12:30)
[2020-10-18] MEDS ORDERED: POTASSIUM CHLORIDE 20 MEQ TAB.ER.PRT PO SCH (17:00)
[2020-10-18] MEDS: FUROSEMIDE 40 MG/4 ML IV SCH (17:00)
[2020-10-18] MEDS: AMPICILLIN/SULBACTAM 3 GM in SODIUM CHLORIDE 0.9% 100 ML IV SCH (19:49)
[2020-10-18] MEDS: ATORVASTATIN 20 MG TABLET PO SCH (21:07)
[2020-10-19] MEDS: AMPICILLIN/SULBACTAM 3 GM in SODIUM CHLORIDE 0.9% 100 ML IV SCH ×4 (00:28→18:03)
[2020-10-19] MEDS: ALBUTEROL/IPRATROPIUM 2.5MG/0.5MG, 3 ML NPPB SCH ×6 (01:30→21:30)
[2020-10-19] MEDS: ACETAMINOPHEN 500 MG TABLET PO SCH ×4 (01:51→20:28)
[2020-10-19] MEDS: PROPOFOL 100 ML IV PRN ×6 (01:52→23:18)
[2020-10-19] MEDS: FENTANYL PF 1,000 MCG in SODIUM CHLORIDE 0.9% 80 ML IV PRN ×2 (03:13→15:18)
[2020-10-19 04:24] LABS: BASOPHILS % (AUTO) 1 % (0-1); EOSINOPHILS % (AUTO) 6 % (1-7); LYMPHOCYTES % (AUTO) 13 % (22-44); MD NO; MEAN CORPUSCULAR HEMOGLOBIN 27.2 pg (27.0-34.8); MEAN CORPUSCULAR HGB CONC 30.7 g/dL (32.4-35.8); MEAN PLATELET VOLUME 10.8 fL (7.4-10.4); MONOCYTES % (AUTO) 12 % (2-9); NEUTROPHILS % (AUTO) 68 % (42-75); PLATELET COUNT 147 x10^3/uL (130-400); RED BLOOD COUNT 3.26 x10^6/uL (3.82-5.3); RED CELL DISTRIBUTION WIDTH 17.4 % (9.6-15.2)
[2020-10-19 04:34] LABS: ANION GAP 3 mmol/L (5-15); CALCIUM 7.9 mg/dL (8.5-10.1); CHLORIDE 101 mmol/L (98-107); CREATININE 0.53 mg/dL (0.55-1.02)
[2020-10-19] MEDS: APIXABAN 5 MG TABLET PO SCH ×2 (09:23→20:28)
[2020-10-19] MEDS: AMIODARONE 200 MG TABLET PO SCH ×2 (09:25→20:28)
[2020-10-19] MEDS: FUROSEMIDE 40 MG/4 ML IV SCH ×2 (09:29→16:09)
[2020-10-19] MEDS: GABAPENTIN 300 MG CAPSULE PO SCH ×3 (09:29→20:28)
[2020-10-19] MEDS: FAMOTIDINE 20 MG/2 ML IV SCH ×2 (09:29→20:28)
[2020-10-19] MEDS: POTASSIUM CHLORIDE 20 MEQ PACKET PO SCH ×2 (09:29→16:09)
[2020-10-19] MEDS: NYSTATIN TOPICAL POWDER 15GM TP SCH ×2 (09:30→20:37)
[2020-10-19] MEDS: NYSTATIN OINT 15GM TP SCH ×2 (09:30→20:37)
[2020-10-19] MEDS: ATORVASTATIN 20 MG TABLET PO SCH (20:28)
[2020-10-20] MEDS: AMPICILLIN/SULBACTAM 3 GM in SODIUM CHLORIDE 0.9% 100 ML IV SCH ×4 (00:37→18:46)
[2020-10-20] MEDS: ALBUTEROL/IPRATROPIUM 2.5MG/0.5MG, 3 ML NPPB SCH ×6 (01:30→23:00)
[2020-10-20] MEDS: ACETAMINOPHEN 500 MG TABLET PO SCH ×4 (02:16→20:16)
[2020-10-20 05:11] LABS: BASOPHILS % (AUTO) 1 % (0-1); EOSINOPHILS % (AUTO) 7 % (1-7); LYMPHOCYTES % (AUTO) 14 % (22-44); MEAN CORPUSCULAR HEMOGLOBIN 27.2 pg (27.0-34.8); MEAN CORPUSCULAR HGB CONC 30.7 g/dL (32.4-35.8); MEAN PLATELET VOLUME 10.4 fL (7.4-10.4); MONOCYTES % (AUTO) 13 % (2-9); NEUTROPHILS % (AUTO) 65 % (42-75); PLATELET COUNT 137 x10^3/uL (130-400); RED BLOOD COUNT 3.12 x10^6/uL (3.82-5.3); RED CELL DISTRIBUTION WIDTH 18.2 % (9.6-15.2)
[2020-10-20 05:12] LABS: MD NO
[2020-10-20 05:19] LABS: ANION GAP 1 mmol/L (5-15); CALCIUM 7.8 mg/dL (8.5-10.1); CHLORIDE 103 mmol/L (98-107)
[2020-10-20 05:21] LABS: CREATININE 0.64 mg/dL (0.55-1.02)
[2020-10-20] MEDS: PROPOFOL 100 ML IV PRN ×4 (05:32→21:47)
[2020-10-20] MEDS: FAMOTIDINE 20 MG/2 ML IV SCH ×2 (08:56→20:16)
[2020-10-20] MEDS: FUROSEMIDE 40 MG/4 ML IV SCH ×2 (08:56→16:15)
[2020-10-20] MEDS: APIXABAN 5 MG TABLET PO SCH ×2 (08:57→20:16)
[2020-10-20] MEDS: GABAPENTIN 300 MG CAPSULE PO SCH ×3 (08:57→20:16)
[2020-10-20] MEDS: POTASSIUM CHLORIDE 20 MEQ PACKET PO SCH ×2 (08:57→16:15)
[2020-10-20] MEDS: NYSTATIN TOPICAL POWDER 15GM TP SCH ×2 (08:57→20:16)
[2020-10-20] MEDS: AMIODARONE 200 MG TABLET PO SCH ×2 (08:57→20:16)
[2020-10-20] MEDS: NYSTATIN OINT 15GM TP SCH ×2 (08:58→20:17)
[2020-10-20] MEDS: FENTANYL PF 1,000 MCG in SODIUM CHLORIDE 0.9% 80 ML IV PRN (10:35)
[2020-10-20] MEDS: ATORVASTATIN 20 MG TABLET PO SCH (20:16)
[2020-10-21] MEDS: PROPOFOL 100 ML IV PRN ×5 (01:14→16:33)
[2020-10-21] MEDS: AMPICILLIN/SULBACTAM 3 GM in SODIUM CHLORIDE 0.9% 100 ML IV SCH ×4 (01:14→18:37)
[2020-10-21] MEDS: ALBUTEROL/IPRATROPIUM 2.5MG/0.5MG, 3 ML NPPB SCH ×6 (03:00→22:41)
[2020-10-21] MEDS: ACETAMINOPHEN 500 MG TABLET PO SCH (03:33)
[2020-10-21 04:33] LABS: BASOPHILS % (AUTO) 1 % (0-1); EOSINOPHILS % (AUTO) 7 % (1-7); LYMPHOCYTES % (AUTO) 13 % (22-44); MEAN CORPUSCULAR HEMOGLOBIN 27.9 pg (27.0-34.8); MEAN CORPUSCULAR HGB CONC 31.3 g/dL (32.4-35.8); MEAN PLATELET VOLUME 10.8 fL (7.4-10.4); MONOCYTES % (AUTO) 12 % (2-9); NEUTROPHILS % (AUTO) 67 % (42-75); PLATELET COUNT 150 x10^3/uL (130-400); RED BLOOD COUNT 3.12 x10^6/uL (3.82-5.3); RED CELL DISTRIBUTION WIDTH 17.8 % (9.6-15.2)
[2020-10-21 04:34] LABS: MD NO
[2020-10-21 04:42] LABS: ANION GAP 3 mmol/L (5-15); CALCIUM 8.2 mg/dL (8.5-10.1); CHLORIDE 103 mmol/L (98-107); CREATININE 0.61 mg/dL (0.55-1.02); TRIGLYCERIDES 176 mg/dL (50-200)
[2020-10-21] MEDS: FENTANYL PF 1,000 MCG in SODIUM CHLORIDE 0.9% 80 ML IV PRN (05:32)
[2020-10-21] MEDS: AMIODARONE 200 MG TABLET PO SCH ×2 (08:35→20:51)
[2020-10-21] MEDS: GABAPENTIN 300 MG CAPSULE PO SCH ×3 (08:35→20:51)
[2020-10-21] MEDS: APIXABAN 5 MG TABLET PO SCH ×2 (08:35→20:51)
[2020-10-21] MEDS: FAMOTIDINE 20 MG/2 ML IV SCH ×2 (08:36→20:50)
[2020-10-21] MEDS: FUROSEMIDE 40 MG/4 ML IV SCH ×2 (08:36→16:33)
[2020-10-21] MEDS: POTASSIUM CHLORIDE 20 MEQ PACKET PO SCH ×2 (08:36→16:33)
[2020-10-21] MEDS: NYSTATIN OINT 15GM TP SCH ×2 (08:36→20:51)
[2020-10-21] MEDS: NYSTATIN TOPICAL POWDER 15GM TP SCH ×2 (08:37→20:51)
--- NOTE | 2020-10-21 10:29 | NUR ---
Vital HP: goal:55 ml/hr on propofol, 60 ml/hr off propofol Addendum: 10/21/20 at [address] Amended: Links added.
[2020-10-21] MEDS: ATORVASTATIN 20 MG TABLET PO SCH (20:50)
[2020-10-22] MEDS: AMPICILLIN/SULBACTAM 3 GM in SODIUM CHLORIDE 0.9% 100 ML IV SCH ×4 (01:03→19:31)
[2020-10-22] MEDS: PROPOFOL 100 ML IV PRN ×5 (01:04→23:47)
[2020-10-22] MEDS: ALBUTEROL/IPRATROPIUM 2.5MG/0.5MG, 3 ML NPPB SCH ×4 (02:14→23:00)
[2020-10-22] MEDS: FENTANYL PF 1,000 MCG in SODIUM CHLORIDE 0.9% 80 ML IV PRN ×2 (03:59→23:45)
[2020-10-22 04:55] LABS: BASOPHILS % (AUTO) 1 % (0-1); EOSINOPHILS % (AUTO) 6 % (1-7); LYMPHOCYTES % (AUTO) 10 % (22-44); MEAN CORPUSCULAR HEMOGLOBIN 27.6 pg (27.0-34.8); MEAN CORPUSCULAR HGB CONC 31.4 g/dL (32.4-35.8); MONOCYTES % (AUTO) 9 % (2-9); NEUTROPHILS % (AUTO) 75 % (42-75); PLATELET COUNT 162 x10^3/uL (130-400); RED BLOOD COUNT 3.24 x10^6/uL (3.82-5.3); RED CELL DISTRIBUTION WIDTH 17.9 % (9.6-15.2)
[2020-10-22 04:59] LABS: MD NO
[2020-10-22 05:04] LABS: ANION GAP 4 mmol/L (5-15); CHLORIDE 102 mmol/L (98-107)
[2020-10-22 05:05] LABS: CREATININE 0.49 mg/dL (0.55-1.02)
[2020-10-22] MEDS: FUROSEMIDE 40 MG/4 ML IV SCH ×2 (08:43→17:33)
[2020-10-22] MEDS: FAMOTIDINE 20 MG/2 ML IV SCH (08:43)
[2020-10-22] MEDS: APIXABAN 5 MG TABLET PO SCH ×2 (08:43→19:32)
[2020-10-22] MEDS: NYSTATIN TOPICAL POWDER 15GM TP SCH (08:44)
[2020-10-22] MEDS: POTASSIUM CHLORIDE 20 MEQ PACKET PO SCH ×2 (08:44→17:33)
[2020-10-22] MEDS: AMIODARONE 200 MG TABLET PO SCH (08:44)
[2020-10-22] MEDS: GABAPENTIN 300 MG CAPSULE PO SCH ×3 (08:44→19:32)
[2020-10-22] MEDS: NYSTATIN OINT 15GM TP SCH (08:45)
[2020-10-22] MEDS ORDERED: LORazepam 2 MG/ML, 1ML IV ONE (10:00)
[2020-10-22] MEDS ORDERED: SODIUM CHLORIDE FLUSH 10ML SYR IVF SCH (10:00)
[2020-10-22] MEDS ORDERED: LORazepam 2 MG/ML, 1ML IVPush PRN (10:00)
[2020-10-22] MEDS ORDERED: ATROPINE OPHTH SOLN 1%, 5ML PO PRN (10:00)
[2020-10-22] MEDS ORDERED: MORPHINE SULFATE 4 MG/ML, 1ML IV ONE (10:00)
[2020-10-22] MEDS ORDERED: ONDANSETRON 2MG/ML, 2ML IVPush PRN (10:00)
[2020-10-22] MEDS ORDERED: MORPHINE SULFATE 4 MG/ML, 1ML IVPush PRN (10:00)
[2020-10-22] MEDS: LORazepam 2 MG/ML, 1ML IVPush SCH ×2 (10:00→14:00)
[2020-10-22] MEDS ORDERED: MORPHINE 30MG/30ML PCA.SYR IV PRN (10:00)
[2020-10-22] MEDS ORDERED: SCOPOLAMINE 1MG PATCH TD PRN (10:00)
[2020-10-22] MEDS ORDERED: ALBUTEROL/IPRATROPIUM 2.5MG/0.5MG, 3 ML ONE (10:09)
[2020-10-22] MEDS ORDERED: PROPOFOL 100 ML IV ONE (12:44)
[2020-10-22] MEDS ORDERED: NYSTATIN OINT 15GM TP PRN (15:00)
[2020-10-22] MEDS ORDERED: BISACODYL 10 MG SUPP PR PRN (15:00)
[2020-10-22] MEDS ORDERED: LACTULOSE 20 GM/30 ML UDC PO PRN (15:00)
[2020-10-22] MEDS ORDERED: NYSTATIN TOPICAL POWDER 15GM TP PRN (15:00)
[2020-10-22] MEDS ORDERED: DOCUSATE 50 MG/5 ML, 10ML UDC PO PRN (15:00)
[2020-10-22] MEDS: FAMOTIDINE 20 MG/2 ML IVPush SCH (19:31)
[2020-10-22] MEDS: AMIODARONE 200 MG TABLET NG SCH (19:32)
[2020-10-22] MEDS: ATORVASTATIN 20 MG TABLET PO SCH (19:32)
[2020-10-23] MEDS: AMPICILLIN/SULBACTAM 3 GM in SODIUM CHLORIDE 0.9% 100 ML IV SCH ×3 (02:20→15:42)
[2020-10-23] MEDS: ALBUTEROL/IPRATROPIUM 2.5MG/0.5MG, 3 ML NPPB SCH ×6 (03:00→23:00)
[2020-10-23] MEDS: PROPOFOL 100 ML IV PRN ×6 (03:38→23:28)
[2020-10-23 04:15] LABS: BASOPHILS % (AUTO) 1 % (0-1); EOSINOPHILS % (AUTO) 6 % (1-7); LYMPHOCYTES % (AUTO) 8 % (22-44); MEAN CORPUSCULAR HEMOGLOBIN 27.5 pg (27.0-34.8); MEAN CORPUSCULAR HGB CONC 30.8 g/dL (32.4-35.8); MEAN PLATELET VOLUME 11.8 fL (7.4-10.4); MONOCYTES % (AUTO) 9 % (2-9); NEUTROPHILS % (AUTO) 76 % (42-75); PLATELET COUNT 180 x10^3/uL (130-400); RED BLOOD COUNT 3.08 x10^6/uL (3.82-5.3)
[2020-10-23 04:20] LABS: MD NO
[2020-10-23 04:22] LABS: ANION GAP 5 mmol/L (5-15); CALCIUM 8.1 mg/dL (8.5-10.1); CHLORIDE 104 mmol/L (98-107)
[2020-10-23 04:23] LABS: CREATININE 0.45 mg/dL (0.55-1.02)
[2020-10-23] MEDS: FUROSEMIDE 40 MG/4 ML IV SCH ×2 (07:52→16:47)
[2020-10-23] MEDS: APIXABAN 5 MG TABLET PO SCH ×2 (08:57→20:45)
[2020-10-23] MEDS: AMIODARONE 200 MG TABLET NG SCH ×2 (08:57→20:45)
[2020-10-23] MEDS: FAMOTIDINE 20 MG/2 ML IVPush SCH ×2 (08:57→20:45)
[2020-10-23] MEDS: GABAPENTIN 300 MG CAPSULE PO SCH ×3 (08:58→20:45)
[2020-10-23] MEDS: POTASSIUM CHLORIDE 20 MEQ PACKET PO SCH ×2 (08:58→16:47)
[2020-10-23] MEDS ORDERED: POTASSIUM CHLORIDE 20 MEQ PACKET PO ONE (12:00)
[2020-10-23] MEDS: FENTANYL PF 1,000 MCG in SODIUM CHLORIDE 0.9% 80 ML IV PRN (18:15)
[2020-10-23] MEDS: ATORVASTATIN 20 MG TABLET PO SCH (20:45)
[2020-10-23] MEDS ORDERED: AMIODARONE 200 MG TABLET NG SCH (21:00)
[2020-10-23] MEDS ORDERED: AMPICILLIN/SULBACTAM 3 GM in SODIUM CHLORIDE 0.9% 100 ML IV SCH (21:00)
[2020-10-24] MEDS: ALBUTEROL/IPRATROPIUM 2.5MG/0.5MG, 3 ML NPPB SCH ×6 (02:59→22:06)
[2020-10-24] MEDS: PROPOFOL 100 ML IV PRN ×5 (04:10→23:56)
[2020-10-24 06:07] LABS: BASOPHILS % (AUTO) 1 % (0-1); EOSINOPHILS % (AUTO) 8 % (1-7); LYMPHOCYTES % (AUTO) 9 % (22-44); MD NO; MEAN CORPUSCULAR HEMOGLOBIN 27.7 pg (27.0-34.8); MEAN CORPUSCULAR HGB CONC 30.8 g/dL (32.4-35.8); MONOCYTES % (AUTO) 11 % (2-9); NEUTROPHILS % (AUTO) 72 % (42-75); PLATELET COUNT 172 x10^3/uL (130-400); RED BLOOD COUNT 3.06 x10^6/uL (3.82-5.3); RED CELL DISTRIBUTION WIDTH 18.1 % (9.6-15.2)
[2020-10-24 06:17] LABS: CHLORIDE 105 mmol/L (98-107)
[2020-10-24 06:27] LABS: ANION GAP 4 mmol/L (5-15); CALCIUM 8.3 mg/dL (8.5-10.1); CREATININE 0.37 mg/dL (0.55-1.02); TRIGLYCERIDES 131 mg/dL (50-200)
[2020-10-24] MEDS: AMIODARONE 200 MG TABLET NG SCH (07:57)
[2020-10-24] MEDS: APIXABAN 5 MG TABLET PO SCH ×2 (07:57→20:37)
[2020-10-24] MEDS: GABAPENTIN 300 MG CAPSULE PO SCH ×3 (07:57→20:37)
[2020-10-24] MEDS: FAMOTIDINE 20 MG/2 ML IVPush SCH ×2 (07:57→20:37)
[2020-10-24] MEDS: FENTANYL PF 1,000 MCG in SODIUM CHLORIDE 0.9% 80 ML IV PRN (19:54)
[2020-10-24] MEDS: ATORVASTATIN 20 MG TABLET PO SCH (20:37)
[2020-10-25] MEDS: PROPOFOL 100 ML IV PRN ×4 (02:52→23:09)
[2020-10-25] MEDS: ALBUTEROL/IPRATROPIUM 2.5MG/0.5MG, 3 ML NPPB SCH ×6 (02:59→22:12)
[2020-10-25 05:47] LABS: BASOPHILS % (AUTO) 1 % (0-1); EOSINOPHILS % (AUTO) 5 % (1-7); LYMPHOCYTES % (AUTO) 9 % (22-44); MD NO; MEAN CORPUSCULAR HEMOGLOBIN 27.6 pg (27.0-34.8); MEAN CORPUSCULAR HGB CONC 31.3 g/dL (32.4-35.8); MEAN PLATELET VOLUME 11.6 fL (7.4-10.4); MONOCYTES % (AUTO) 10 % (2-9); NEUTROPHILS % (AUTO) 76 % (42-75); PLATELET COUNT 189 x10^3/uL (130-400)
[2020-10-25 05:59] LABS: ANION GAP 6 mmol/L (5-15); CALCIUM 8.3 mg/dL (8.5-10.1); CHLORIDE 103 mmol/L (98-107)
[2020-10-25 06:01] LABS: CREATININE 0.38 mg/dL (0.55-1.02)
[2020-10-25] MEDS: FAMOTIDINE 20 MG/2 ML IVPush SCH ×2 (07:43→21:31)
[2020-10-25] MEDS: APIXABAN 5 MG TABLET PO SCH ×2 (07:43→21:31)
[2020-10-25] MEDS: GABAPENTIN 300 MG CAPSULE PO SCH ×3 (07:43→21:31)
[2020-10-25] MEDS ORDERED: NOREPINEPHRINE 8 MG in SODIUM CHLORIDE 0.9% 242 ML IV PRN (11:00)
[2020-10-25] MEDS: FENTANYL PF 1,000 MCG in SODIUM CHLORIDE 0.9% 80 ML IV PRN (21:04)
[2020-10-25] MEDS: ATORVASTATIN 20 MG TABLET PO SCH (21:31)
[2020-10-26] MEDS: PROPOFOL 100 ML IV PRN (02:49)
[2020-10-26] MEDS: ALBUTEROL/IPRATROPIUM 2.5MG/0.5MG, 3 ML NPPB SCH ×2 (03:00→07:35)
[2020-10-26 06:30] LABS: BASOPHILS % (AUTO) 1 % (0-1); EOSINOPHILS % (AUTO) 6 % (1-7); LYMPHOCYTES % (AUTO) 11 % (22-44); MEAN CORPUSCULAR HEMOGLOBIN 27.6 pg (27.0-34.8); MEAN CORPUSCULAR HGB CONC 30.9 g/dL (32.4-35.8); MEAN PLATELET VOLUME 11.4 fL (7.4-10.4); MONOCYTES % (AUTO) 10 % (2-9); NEUTROPHILS % (AUTO) 72 % (42-75); PLATELET COUNT 216 x10^3/uL (130-400); RED BLOOD COUNT 3.05 x10^6/uL (3.82-5.3); RED CELL DISTRIBUTION WIDTH 17.4 % (9.6-15.2)
[2020-10-26 06:38] LABS: ANION GAP 5 mmol/L (5-15); CALCIUM 8.5 mg/dL (8.5-10.1); CHLORIDE 103 mmol/L (98-107); CREATININE 0.29 mg/dL (0.55-1.02)
[2020-10-26 06:44] LABS: MD NO
[2020-10-26] MEDS: GABAPENTIN 300 MG CAPSULE PO SCH (09:00)
[2020-10-26] MEDS: FAMOTIDINE 20 MG/2 ML IVPush SCH (09:00)
[2020-10-26] MEDS: APIXABAN 5 MG TABLET PO SCH (09:00)
[2020-10-26] MEDS ORDERED: ATROPINE OPHTH SOLN 1%, 5ML PO PRN (09:30)
[2020-10-26] MEDS ORDERED: LORazepam 2 MG/ML, 1ML IV ONE (09:30)
[2020-10-26] MEDS ORDERED: ONDANSETRON 2MG/ML, 2ML IVPush PRN (09:30)
[2020-10-26] MEDS ORDERED: MORPHINE SULFATE 4 MG/ML, 1ML IV ONE (09:30)
[2020-10-26] MEDS ORDERED: MORPHINE SULFATE 4 MG/ML, 1ML IVPush PRN (09:30)
[2020-10-26] MEDS ORDERED: LORazepam 2 MG/ML, 1ML IVPush PRN (09:30)
== END 2020-10-26 14:10 | disposition expired | DRG 870 ==
LOC: ED 20:46 → EDIP 21:32 → 5SO 22:27 → CCU 10-15 16:43
PROVIDERS: ADMIT Hospitalist; ATTEND Hospitalist
PROC: 5A1955Z Respiratory Ventilation, Greater than 96 Consecutive Hours (ICD-10-PCS; principal; 2020-10-15)
PROC: 5A09357 Assistance with Respiratory Ventilation, Less than 24 Consecutive Hours, Continuous Positive Airway Pressure (ICD-10-PCS; 2020-10-15)
PROC: 0T9B30Z Drainage of Bladder with Drainage Device, Percutaneous Approach (ICD-10-PCS; 2020-10-15)
PROC: 0BH17EZ Insertion of Endotracheal Airway into Trachea, Via Natural or Artificial Opening (ICD-10-PCS; 2020-10-15)
PROC: 03HY32Z Insertion of Monitoring Device into Upper Artery, Percutaneous Approach (ICD-10-PCS; 2020-10-15)
PROC: 4A133B1 Monitoring of Arterial Pressure, Peripheral, Percutaneous Approach (ICD-10-PCS; 2020-10-15)
PROC: 4A133J1 Monitoring of Arterial Pulse, Peripheral, Percutaneous Approach (ICD-10-PCS; 2020-10-15)
PROC: 02HV33Z Insertion of Infusion Device into Superior Vena Cava, Percutaneous Approach (ICD-10-PCS; 2020-10-16)
PROC: B548ZZA Ultrasonography of Superior Vena Cava, Guidance (ICD-10-PCS; 2020-10-16)
DX: A41.9 Sepsis, unspecified organism (principal); J96.20 Acute and chronic respiratory failure, unspecified whether with hypoxia or hypercapnia; R53.2 Functional quadriplegia; E43 Unspecified severe protein-calorie malnutrition; R65.21 Severe sepsis with septic shock; J15.6 Pneumonia due to other Gram-negative bacteria; N17.0 Acute kidney failure with tubular necrosis; J96.21 Acute and chronic respiratory failure with hypoxia; J69.0 Pneumonitis due to inhalation of food and vomit; I50.43 Acute on chronic combined systolic (congestive) and diastolic (congestive) heart failure; Z68.45 Body mass index [BMI] 70 or greater, adult; N39.0 Urinary tract infection, site not specified; E87.4 Mixed disorder of acid-base balance; E66.2 Morbid (severe) obesity with alveolar hypoventilation; J44.1 Chronic obstructive pulmonary disease with (acute) exacerbation; D68.69 Other thrombophilia; D50.9 Iron deficiency anemia, unspecified; Z51.5 Encounter for palliative care; Z66 Do not resuscitate; L30.4 Erythema intertrigo; I48.0 Paroxysmal atrial fibrillation; I27.20 Pulmonary hypertension, unspecified; I11.0 Hypertensive heart disease with heart failure; G89.29 Other chronic pain; G62.9 Polyneuropathy, unspecified; F17.210 Nicotine dependence, cigarettes, uncomplicated; F10.20 Alcohol dependence, uncomplicated; E87.6 Hypokalemia; L08.9 Local infection of the skin and subcutaneous tissue, unspecified; E83.42 Hypomagnesemia; E78.5 Hyperlipidemia, unspecified; R53.81 Other malaise; B95.2 Enterococcus as the cause of diseases classified elsewhere; L89.90 Pressure ulcer of unspecified site, unspecified stage; Z88.8 Allergy status to other drugs, medicaments and biological substances; Z99.81 Dependence on supplemental oxygen; Z91.19 Patient's noncompliance with other medical treatment and regimen; Z79.01 Long term (current) use of anticoagulants; Z74.01 Bed confinement status; Z83.3 Family history of diabetes mellitus; Z82.49 Family history of ischemic heart disease and other diseases of the circulatory system; Z79.899 Other long term (current) drug therapy
CPT/HCPCS: 36415; 36600; 71045; 74018; 80048; 80053; 80329; 81001; 82607; 82728; 82803; 83540; 83550; 83605; 83735; 83880; 84132; 84145; 84439; 84443; 84478; 84484; 85025; 85610; 85730; 87040; 87070; 87077; 87081; 87086; 87186; 87205; 93005; 93308; 93321; 93325; 94002; 94003; 94640; 94660; 96374; G0378; J0295; J1756; J1940; J2020; J2250; J2543; J2704; J3010; J3480; J7060; J7120; P9047; G0480; J0282; J1450; J2060; J2270; J3475; J7040; J7050